=== PATIENT | male | born 1955 | race Asian ===

== ENCOUNTER 2024-05-02 12:58 | Day surgery (SDC) | payer OTHER ==
[~2024-05-02] VITALS: Ht 162.6 cm; Wt 71.2 kg
[~2024-05-02 12:58] MED LIST: Balanced Salt Epinephrine Irrigation Solution 500 mL IR SCH; FentaNYL Citrate 50 MCG/ML 2 ML Injection ONE; Lidocaine HCl/Pf 1% 5 ML VIAL XX SCH; Midazolam HCl 1MG / ML 2ML Vial ONE; Moxifloxacin HCL 0.5 MG/0.1 ML 0.4MLSYR RIGHTEYE SCH; NS 500 ML IV ONE; PHENYLEPHRINE\\TROPICAMIDE\\TETRACAINE OPHTHALMIC DILATING SOLN RIGHTEYE PRN; Povidone-Iodine 450 DROP/30 ML Solution RIGHTEYE SCH; Triamcinolone Inj Susp 40 MG / ML 1ML Vial INJ SCH; Triamcinolone Inj Susp 40 MG / ML 1ML Vial ONE
[2024-05-02] MEDS ORDERED: NS 500 ML IV ONE (13:10)
[2024-05-02] MEDS ORDERED: ATOR20 PO (13:13)
[2024-05-02] MEDS ORDERED: LOSA25 PO (13:13)
--- NOTE | 2024-05-02 13:48 | NUR ---
05/02/24 1344 Deana Ugalde ON EYE BED, RAILS UP. PILLOW UNDER KNEES.
[2024-05-02] MEDS ORDERED: Tetracaine HCl 0.5% Opth Soln 15 ml RIGHTEYE ONE (13:49)
[2024-05-02 14:25] VITALS: BP 115/64
--- NOTE | 2024-05-02 15:03 | NUR ---
05/02/24 Gertrudis Piedra [employer] WAS USED TO COMMUNICATE WITH THE PATIENT AND HIS IN STEP DOWN DURING CARE AND DISCHARGE INSTRUCTIONS. PATIENT WAS DISCHARGED TO HIS , HIS NEIGHBOR DEWEY WILL BE DRIVING THEM BOTH HOME.
== END 2024-05-02 14:45 | disposition home or self-care (01) ==
LOC: ORSCSDS 12:58
PROVIDERS: Ophthalmology
PROC: 08RJ3JZ Replacement of Right Lens with Synthetic Substitute, Percutaneous Approach (ICD-10-PCS; principal; 2024-05-02 14:00)
DX: H25.813 Combined forms of age-related cataract, bilateral (principal); I10 Essential (primary) hypertension; E78.5 Hyperlipidemia, unspecified; Z79.899 Other long term (current) drug therapy
CPT/HCPCS: J2250; J3010; J3301; J7040; V2632

== ENCOUNTER 2024-05-16 12:53 | Day surgery (SDC) | payer OTHER ==
[~2024-05-16] VITALS: Ht 162.6 cm; Wt 72.3 kg
[~2024-05-16 12:53] MED LIST changes: +ATOR20 PO; -FentaNYL Citrate 50 MCG/ML 2 ML Injection ONE; +LOSA25 PO; -Midazolam HCl 1MG / ML 2ML Vial ONE; +Moxifloxacin HCL 0.5 MG/0.1 ML 0.4MLSYR LEFTEYE SCH; -Moxifloxacin HCL 0.5 MG/0.1 ML 0.4MLSYR RIGHTEYE SCH; +PHENYLEPHRINE\\TROPICAMIDE\\TETRACAINE OPHTHALMIC DILATING SOLN LEFTEYE PRN; -PHENYLEPHRINE\\TROPICAMIDE\\TETRACAINE OPHTHALMIC DILATING SOLN RIGHTEYE PRN; +Povidone-Iodine 450 DROP/30 ML Solution LEFTEYE SCH; -Povidone-Iodine 450 DROP/30 ML Solution RIGHTEYE SCH; -Triamcinolone Inj Susp 40 MG / ML 1ML Vial ONE
[2024-05-16] MEDS ORDERED: NS 500 ML IV ONE (13:22)
[2024-05-16] MEDS ORDERED: Midazolam HCl 1MG / ML 2ML Vial ONE (13:59)
[2024-05-16] MEDS ORDERED: FentaNYL Citrate 50 MCG/ML 2 ML Injection ONE (13:59)
--- NOTE | 2024-05-16 14:44 | NUR ---
05/16/24 1444 Moira Carrillo [employer] INTERN ON PHONE FOR CARE AND DISCHARGE INSTRUCTIONS.
[2024-05-16 14:47] VITALS: BP 128/82
== END 2024-05-16 15:06 | disposition home or self-care (01) ==
LOC: ORSCSDS 12:53
PROVIDERS: Ophthalmology
PROC: 08RK3JZ Replacement of Left Lens with Synthetic Substitute, Percutaneous Approach (ICD-10-PCS; principal; 2024-05-16 14:00)
DX: H25.812 Combined forms of age-related cataract, left eye (principal); Z96.1 Presence of intraocular lens; I10 Essential (primary) hypertension; Z79.899 Other long term (current) drug therapy
CPT/HCPCS: J2250; J3010; J7040; V2632